=== PATIENT | male | born 1980 | race Caucasian/White ===

== ENCOUNTER 2020-04-16 21:22 | Emergency (ER) | payer MEDICAID ==
[~2020-04-16] VITALS: Ht 182.9 cm; Wt 86.2 kg
[2020-04-16 21:28] VITALS: BP 142/82
--- NOTE | 2020-04-16 21:33 | Emergency Room Report ---
History of Present Illness General Chief Complaint: General Complaint Source: Patient (Jimmy Graham MD) Source: Patient (Augusto Damon MD) Present Illness HPI Patient is a 39-year-old male who presents for possible alcohol withdrawal. Patient had reportedly had last drink approximately 12 hours ago. Reports having increased shakiness. Previous history of alcohol withdrawal and drinks vodka daily. States that he had not been having any vomiting or abdominal pain. Additionally states that he has been on psychiatric medications and has not been taking them. Previously had been on Wellbutrin as well as gabapentin and duloxetine. Denies any fever or other complaints. States he was recently hospitalized at the [facility]. Patient was brought in with IV from recent elopement from the hospital. (Jimmy Graham MD) HPI This patient was signed out to me. He came in with chief complaint of shakiness and possible alcohol withdrawal. Patient denies suicidal thoughts homicidal thought. He appeared to be calm and not shaky at all. He had previous tape vásquez and EKG vásquez on him. He said he would just left the hospital. He was resting and said he felt better and got up and said he want to leave. I see no criteria for 5150. Will discharge patient. 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 - 04/11/20 COVID-19 Screening: Negative COVID-19 COVID-19 Testing Source: [facility] (Jimmy Graham MD) Patient History Past Medical History: see triage record Reviewed Nursing Documentation: PMH: Agreed; PSxH: Agreed (Jimmy Graham MD) Nursing Documentation-PMH Past Medical History: No Stated History (Jimmy Graham MD) Review of Systems All Other Systems: negative except mentioned in HPI (Jimmy Graham MD) Physical Exam Vital Signs Date Time Temp Pulse Resp B/P (MAP) Pulse Ox O2 Delivery O2 Flow Rate FiO2 04/16/20 21:25 98.8 110 18 142/82 (102) 98 Room Air Sp02 EP Interpretation: reviewed, normal General Appearance: normal inspection, well appearing, no apparent distress, alert, GCS 15, non-toxic Head: atraumatic ENT: normal ENT inspection, hearing grossly normal, normal voice Neck: normal inspection, full range of motion, supple, no bony tend Respiratory: normal inspection, lungs clear, normal breath sounds, no respiratory distress, no retraction, no wheezing Cardiovascular #1: regular rate, rhythm, no edema Gastrointestinal: normal inspection, normal bowel sounds, non tender, soft, no guarding, no hernia Genitourinary: no CVA tenderness Musculoskeletal: normal inspection, back normal, normal range of motion Neurologic: alert, motor strength/tone normal, 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 (Augusto Damon MD) Diagnostic Impression: Primary Impression: Alcohol intoxication ER Course Patient presents for possible alcohol withdrawal. Differential diagnosis include was not limited to electrolyte abnormality, intoxication, alcohol withdrawal among others. Because of complexity of patient's case laboratory tests and imaging studies were ordered. (Jimmy Graham MD) ER Course Patient signed out to me. No criteria for 5150. Will discharge home. This patient is a chronic risk of self injury due to poor impulse control, limited coping skills, and judgment intermittently impaired by intoxication. I believe that the available clinical evidence to suggest that these characteristics derived primarily from personality disorder and are likely very stable over time. Hospitalization would likely attenuate risk of self-harm only during intermediate period, without lasting risk reduction. Serious self-harm, while possible, would likely be inadvertent, and because of impulsivity, and foreseeable. For these reasons, I do not believe hospitalization would provide meaningful reduction in risk of self-harm. (Augusto Damon MD) Last Vital Signs Date Time Temp Pulse Resp B/P (MAP) Pulse Ox O2 Delivery O2 Flow Rate FiO2 04/16/20 21:28 110 18 Room Air 04/16/20 21:28 98.8 142/82 98 (Jimmy Graham MD) Status: improved (Augusto Damon MD) Disposition: HOME, SELF-CARE Condition: Stable Jimmy Graham MD Apr 16, 2020 21:33 Augusto Damon MD Apr 16, 2020 22:32
[2020-04-16] MEDS ORDERED: Thiamine HCl 100 MG in D5W 55 ML IVPB ONE (21:45)
[2020-04-16] MEDS ORDERED: D5 1/2NS w/KCl 20mEq 1,000 ML IV SCH (21:45)
[2020-04-16] MEDS ORDERED: LORazepam Inj 2mg/ml 1ml IV ONE (21:45)
[2020-04-16 22:18] LABS: BASOPHILS % (AUTO) 2.7 % (0.0-2.0); EOSINOPHILS % (AUTO) 0.9 % (0.0-3.0); HEMATOCRIT 36.6 % (42.0-52.0); HEMOGLOBIN 12.3 G/DL (14.2-18.0); LYMPHOCYTES % (AUTO) 35.7 % (20.0-45.0); MEAN CORPUSCULAR VOLUME 93 FL (80-99); MONOCYTES % (AUTO) 16.6 % (1.0-10.0); NEUTROPHILS % (AUTO) 44.1 % (45.0-75.0); PLATELET COUNT 274 K/UL (150-450); RED BLOOD COUNT 3.95 M/UL (4.70-6.10); WHITE BLOOD COUNT 5.7 K/UL (4.8-10.8)
[2020-04-16 22:30] VITALS: BP 135/79
--- NOTE | 2020-04-16 22:30 | NUR ---
ER DISCHARGE NOTE: Patient is cleared to be discharged per ERMD, pt is aox4, on room air, with stable vital signs. pt was given dc and prescription instructions, pt was able to verbalize understanding, pt id band and iv site. patient refused to sign paperwork
[2020-04-16 22:40] LABS: ANION GAP 9 mmol/L (5-15); BLOOD UREA NITROGEN 10 mg/dL (7-18); CALCIUM 8.4 MG/DL (8.5-10.1); CARBON DIOXIDE 26 MMOL/L (21-32); CHLORIDE 107 MMOL/L (98-107); POTASSIUM 4.5 MMOL/L (3.5-5.1); SODIUM 141 MMOL/L (136-145)
[2020-04-16 22:44] LABS: ALANINE AMINOTRANSFERASE 24 U/L (12-78); ALBUMIN 3.7 G/DL (3.4-5.0); ALBUMIN/GLOBULIN RATIO 1.1 (1.0-2.7); ALKALINE PHOSPHATASE 71 U/L (46-116); ASPARTATE AMINO TRANSFERASE 27 U/L (15-37); BILIRUBIN,TOTAL 0.3 MG/DL (0.2-1.0)
== END 2020-04-16 22:30 | disposition home or self-care (01) ==
LOC: EDBD 21:22 → EMR 21:40
DX: F10.129 Alcohol abuse with intoxication, unspecified (principal); Y90.7 Blood alcohol level of 200-239 mg/100 ml
CPT/HCPCS: 36415; 80053; 80307; 83735; 85025; 96365; 96367; 96375; G0480; Z7502; 99284